=== PATIENT | male | born 1985 | race Hispanic/Latino ===

== ENCOUNTER → 2021-01-22 16:16 | Outpatient (CLI) | payer OTHER, SELFPAY ==
--- NOTE | ~2021-01-22 | XR_ITS ---
XR cervical spine min 6V DATE: 01/22/2021 16:52 INDICATION: Neck pain TECHNIQUE: AP, open-mouth, lateral, swimmer's and bilateral oblique views COMPARISON: None FINDINGS: There is straightening of the cervical spine. This may be due to muscle spasm. C1 and C2 are normally aligned and the odontoid process is intact. No fracture or dislocation or lock ed facet or prevertebral soft tissue swelling. Cervical interspaces are well preserved. There is no e vidence of bony encroachment upon the neural foramina. IMPRESSION: Straightening; otherwise negative Reviewed, dictated and finalized at location A.
== END ==
DX: M54.12 Radiculopathy, cervical region (principal); M99.01 Segmental and somatic dysfunction of cervical region; M99.02 Segmental and somatic dysfunction of thoracic region
CPT/HCPCS: 72052

== ENCOUNTER 2021-11-21 15:58 | Emergency (ER) | payer SELFPAY ==
[2021-11-21 16:08] VITALS: BP 145/78; PULSE 73; RESP 16; TEMP 37.3; O2SAT 99
--- NOTE | 2021-11-21 17:18 | ED.EAR ---
HPI - Ear Problem General Chief complaint: Ear Stated complaint: ear pain Time Seen by Provider: 11/21/21 17:07 Source: patient and RN notes reviewed Mode of arrival: ambulatory Limitations: no limitations History of Present Illness HPI Narrative: Patient presents today complaining of absent hearing in the right ear for the past 10 days. He also reports being dizzy when head movement with some intermittent pressure in the sinuses. States in the past this has been indicative of an ear infection and he came in to get his ear checked. Denies symptoms in the left ear. Denies any recent illness. He is currently pain-free. Complaint: decreased hearing Related Data Home Medications Medication Instructions Recorded Confirmed aspirin 81 mg PO DAILY 11/21/21 11/21/21 atorvastatin 20 mg PO DAILY 11/21/21 11/21/21 famotidine 20 mg PO DAILY 11/21/21 11/21/21 lisinopril 5 mg PO DAILY 11/21/21 11/21/21 metformin 5 mg PO DAILY 11/21/21 11/21/21 Allergies Allergy/AdvReac Type Severity Reaction Status Date / Time No Known Allergies Allergy Verified 11/21/21 16:29 Review of Systems Review of Systems: CONSTITUTIONAL: Denies body aches, fever, chills, or sweats. EYES: Denies visual changes, redness, or discharge. ENT: Denies rhinorrhea, congestion, sore throat, or otalgia.+ Absent hearing on the right, sinus pressure CARDIOVASCULAR: Denies chest pain, palpitations, or edema. RESPIRATORY: Denies cough or dyspnea. GASTROINTESTINAL: Denies abdominal pain, nausea, vomiting, or diarrhea. GENITOURINARY: Denies dysuria or hematuria. SKIN: Denies rash, itching, or wounds. MUSCULOSKELETAL: Denies back pain, joint pain, or myalgia. NEUROLOGIC: Denies headache, numbness, tingling, or weakness. PSYCH: Denies depression or anxiety. PMFSH Comments At time of signature, I have reviewed and agree with nursing past medical, surgical, social and family history unless otherwise noted. Please see nursing chart for further information. There is no relevant family history pertinent to the presenting complaint Exam Narrative: GENERAL: Well-appearing, well-nourished, and in no acute distress. HEAD: Normocephalic, atraumatic. EYES: EOMI. No redness or drainage. Conjunctivae normal. ENT: Mucous membranes pink and moist. Nares clear. No rhinorrhea. Left TM normal. Right TM with serous effusion. No evidence of infection. Throat normal. Uvula midline. NECK: Normal AROM. Supple. No lymphadenopathy. CHEST: No respiratory distress. EXTREMITIES: Normal range of motion. No edema. SKIN: Warm, dry, no rash. Capillary refill normal. Normal skin turgor. NEURO: No focal deficits. Alert and oriented x3. Gait steady. PSYCH: Normal affect. No signs of depression or anxiety. Course Course Level of Care: Express Care Visit Vital Signs Vital signs: Vital Signs Temperature 99.1 F 11/21/21 16:08 Pulse Rate 73 11/21/21 16:08 Respiratory Rate 16 11/21/21 16:08 Blood Pressure 145/78 H 11/21/21 16:08 Pulse Oximetry 99 11/21/21 16:08 Temperature 99.1 F 11/21/21 16:08 Pulse Rate 73 11/21/21 16:08 Respiratory Rate 16 11/21/21 16:08 Blood Pressure 145/78 H 11/21/21 16:08 Pulse Oximetry 99 11/21/21 16:08 Reviewed. Pt has been instructed to follow up with his PCP regarding his elevated blood pressure today. Medical Decision Making Differential Diagnosis Differential Diagnosis: Otitis media, otitis externa, ruptured TM, serous otitis, eustachian tube dysfunction, vertigo Vital Signs Vital Signs: Vital Signs Temperature 99.1 F 11/21/21 16:08 Pulse Rate 73 11/21/21 16:08 Respiratory Rate 16 11/21/21 16:08 Blood Pressure 145/78 H 11/21/21 16:08 Pulse Oximetry 99 11/21/21 16:08 Temperature 99.1 F 11/21/21 16:08 Pulse Rate 73 11/21/21 16:08 Respiratory Rate 16 11/21/21 16:08 Blood Pressure 145/78 H 11/21/21 16:08 Pulse Oximetry 99 11/21/21 16:08 Critical Care Time Critical Care Jermaine
== END 2021-11-21 17:25 | disposition home or self-care (01) ==
PROVIDERS: Emergency Provider Nurse Practitioner
DX: H65.01 Acute serous otitis media, right ear (principal); Z79.82 Long term (current) use of aspirin
CPT/HCPCS: 99211; G0463